=== PATIENT | female | born 1950 | race African-American/Black ===

== ENCOUNTER 2018-02-13 01:41 | Inpatient (IN) | payer MEDICARE, MEDICAID ==
[2018-02-13 02:59] LABS: Bilirubin Negative (Negative); Blood, Urine Negative (Negative); Clarity CLEAR (Clear); Glucose, Urine (Dipstick) >=1000 mg/dL (Negative); Leukocyte Negative (Negative); Nitrite Negative (Negative); Protein, Urine (Dipstick) Negative (Neg-Trace); Specific Gravity, Urine 1.025 (1.002-1.036); Urobilinogen 0.2 mg/dL (0.2-1.0); pH, Urine 6.5 (5.0-9.0)
[2018-02-13] MEDS ORDERED: Ondansetron ODT 4 MG TAB SL PRN (03:57)
[2018-02-13] MEDS ORDERED: Ondansetron HCl/PF 4 MG/2 ML Vial IVP PRN ×2 (03:57→06:58)
[2018-02-13] MEDS ORDERED: Acetaminophen 325 MG TAB PO PRN ×2 (03:57→06:58)
[2018-02-13] MEDS ORDERED: Sodium Chloride 0.9% 1,000 ML IV SCH (03:57)
[2018-02-13 04:09] VITALS: BMI 35.2
[2018-02-13] MEDS ORDERED: hydrALAZINE 20 MG/ML VIAL SLOW IVP PRN (05:16)
[2018-02-13] MEDS ORDERED: Dextrose 50% Abboject 50 ML SYRINGE SLOW IVP PRN (06:58)
[2018-02-13] MEDS ORDERED: Loratadine 10 MG TAB PO PRN (06:58)
[2018-02-13] MEDS ORDERED: Sodium Chloride 0.65% Nasal 44 ML BOT EA NARE PRN (06:58)
[2018-02-13] MEDS ORDERED: Chloraseptic Spray 180 ml Bottle PO PRN (06:58)
[2018-02-13] MEDS ORDERED: traMADol HCl 50 MG TAB PO PRN (06:58)
[2018-02-13] MEDS ORDERED: Ondansetron ODT 4 MG TAB PO PRN (06:58)
[2018-02-13] MEDS ORDERED: Milk Of Magnesia 30 ML UDCUP PO PRN (06:58)
[2018-02-13] MEDS ORDERED: Dextrose 5% in Water 1,000 ML IV PRN (06:58)
[2018-02-13] MEDS ORDERED: Labetalol HCl 100 MG/20 ML VIAL SLOW IVP PRN (06:58)
[2018-02-13] MEDS ORDERED: Artificial Tears 18 DROP/0.9 ML EA EYE PRN (06:58)
[2018-02-13] MEDS ORDERED: Senokot 8.6 MG TAB PO PRN (06:58)
[2018-02-13] MEDS ORDERED: HYDROcodone/Acetaminophen 5/325 mg Tablet PO PRN (06:58)
[2018-02-13] MEDS ORDERED: Diabetic Tussin 200 MG/10 ML UDCUP PO PRN (06:58)
[2018-02-13] MEDS ORDERED: Eucerin (Mineral Oil/Petrolatum,White) 30 gm Jar TOP PRN (06:58)
[2018-02-13] MEDS ORDERED: Mag-Al 1200 mg/1200 mg/30 ML UDCUP PO PRN (06:58)
[2018-02-13 07:40] LABS: ALT (SGPT) 24 U/L (8-55); AST (SGOT) 26 U/L (5-34); Albumin 3.8 g/dL (3.4-4.8); Alkaline Phosphatase 71 U/L (40-150); Anion Gap 13 mmol/L (10-20); BUN (Urea Nitrogen) 34 mg/dL (9.8-20.1); Bilirubin, Total 0.9 mg/dL (0.2-1.2); Calc. Creatinine Clearance 64 mL/min (70-130); Calcium 9.5 mg/dL (7.8-10.44); Carbon Dioxide 34 mmol/L (23-31); Chloride 98 mmol/L (98-107); Estimated GFR-MDRD 50; Globulin 3.5 g/dL (2.4-3.5); Glucose 367 mg/dL (80-115); Potassium 4.1 mmol/L (3.5-5.1); Protein, Total 7.3 g/dL (6.0-8.3); Sodium 141 mmol/L (136-145)
[2018-02-13] MEDS: metFORMIN 500 MG TAB PO SCH ×2 (08:05→18:43)
[2018-02-13 08:42] LABS: Band 5 % (5-11); Hemoglobin 13.4 g/dL (12.0-16.0); Lymphocytes 5 % (21-51); MDiff Complete? YES; Mean Corpuscular HGB CONC 30.8 g/dL (32.0-36.0); Mean Corpuscular Hemoglobin 25.7 pg (27.0-31.0); Mean Corpuscular Volume 83.5 fL (78.0-98.0); Mean Platelet Volume 9.6 fL (7.4-10.4); Monocytes 2 % (0-10); Neutrophil 88 % (42-75); Platelet Count 288 thou/uL (130-400); RBC Distribution Width 16.4 % (11.5-14.5); RBC Morphology Normal; Red Blood Cell (RBC) Count 5.21 mill/uL (4.20-5.40); White Blood Cell (WBC) Count 12.6 thou/uL (4.8-10.8)
--- NOTE | 2018-02-13 08:47 | RAD ---
AP VIEW CHEST: INDICATIONS: Wheezing. COMPARISON: None. FINDINGS: Low lung volumes accentuate the cardiac silhouette and pulmonary vasculature; however, the cardiac si lhouette is felt to be enlarged. There are areas of subsegmental volume loss involving the right mid lung. No pleural effusion or pneumothorax is evident. No acute osseous abnormality is evident. IMPRESSION: 1. Low lung volumes. 2. Cardiomegaly. 3. Subsegmental volume loss, right mid lung. POS: [facility]
[2018-02-13] MEDS ORDERED: Prevnar 13-Val Conj/PF 0.5 ML SYRINGE IM ONE (09:00)
[2018-02-13] MEDS ORDERED: cloNIDine 0.2mg/24 Hour PATCH TD SCH (09:45)
[2018-02-13] MEDS: Lisinopril 20 MG TAB PO SCH (10:47)
[2018-02-13] MEDS: Potassium Chloride 20 MEQ TAB PO SCH (10:48)
[2018-02-13] MEDS: Carvedilol 25 MG TAB PO SCH ×2 (10:48→20:08)
[2018-02-13] MEDS: Furosemide 80 MG TAB PO SCH (10:48)
[2018-02-13] MEDS: Atorvastatin Calcium 40 MG TAB PO SCH (11:01)
[2018-02-13] MEDS ORDERED: Insulin NPH/Reg Insulin Hm 300 UNITS/3 ML VIAL SC SCH ×2 (11:30→12:15)
--- NOTE | 2018-02-13 12:03 | HP ---
PRIMARY CARE PHYSICIAN: [facility] call admission. REASON FOR ADMISSION: Transfer from [facility] for cerebellar mass. HISTORY OF PRESENT ILLNESS: A 67-year-old female who has reported chronic respirato ry failure, on home oxygen therapy; coronary artery disease; COPD; diabetes type 2; chronic diastolic heart failure; hypertension. The patient went to [facility] for generalized weakn ess. This patient unfortunately completely encephalopathic and she is not able to provide any good h istory. Whenever I tried to talk to her, she was mumbling and she appeared confused, so history not able to be obtained from her so I reviewed [facility] record, which was sent with t he patient in our emergency room and based on that, patient had a summary sent to hospital stay and s ubsequently she was having generalized weakness. She was treated for COPD and pulmonary hypertension , and she was discharged with oxygen therapy. At home, the patient was getting more and more confuse d. She was not able to get around. She was having pain and that is why she was evaluated at [facility]. The patient had a CT brain which showed large hypodense mass within the regio n of left cerebellar hemisphere with some mass effect on the fourth ventricle. There was suspicious for metastatic disease versus primary brain neoplasm and the patient was requiring MRI and for higher level of care, this patient was sent to our emergency room for evaluation. Overnight, the patient w as admitted to medical floor. When I saw this patient this morning, the patient was confused, not ab le to provide any history. PAST MEDICAL HISTORY: As per report, the patient has chronic respiratory failure, on home oxygen the rapy for hypoxia; COPD; CAD; diabetes type 2; chronic congestive heart failure likely diastolic; hype rtension. PAST SURGICAL HISTORY: The patient is not able to provide any surgical history as per report. CURRENT HOME MEDICATIONS: We do not have any medication and no family member present at bedside to b ring any medication list. ALLERGIES: No known drug allergies. PSYCHIATRIC HISTORY: Unable to review at this point because patient is not able to provide any histo ry. SOCIAL HISTORY: As per report, the patient never smoked. No history of alcohol or other illicit tim g abuse. Detailed social history not able to obtain from patient. FAMILY HISTORY: As per report, we do not have any more information about family history and the amber ent cannot provide or add any more history regarding family history. REVIEW OF SYSTEMS: All review of systems tried to review with the patient, but unable to review at t his point because of altered mental status. EMERGENCY ROOM COURSE: The patient was given labetalol 10 units subcutaneous insulin, DuoNeb therapy , Decadron, 1 gram Rocephin at [facility]. PHYSICAL EXAMINATION: VITAL SIGNS: In our emergency room, blood pressure 167/83, pulse 85, respiratory rate 18, temperatur e 97.6, saturation 93% on room air, weight 99.7 kilograms. GENERAL: The patient is currently confused, arousable, unable to answer questions. No obvious acute distress. HEAD: Normocephalic, atraumatic. EYES: Pupils round, reactive to light. Extraocular muscle intact. ENT: Dry mucous membranes, no oral lesion, no pharyngeal erythema, no exudate. NECK: Supple, no JVD, no thyromegaly, no carotid bruit. LUNGS: Bilateral coarse breath sounds with a few bilateral end expiratory wheezing heard. CARDIAC: S1, S2 appears regular, tachycardia, no murmur, no gallop, no rub. ABDOMEN: Obesity present. Bowel sounds present. No discomfort noted. No suprapubic discomfort, no peritoneal sign, no guarding, no rigidity. GENITOURINARY: Unremarkable. MUSCULOSKELETAL: Passive movement of all joints are normal. SKIN: No skin rash. HEMATOLOGIC: No lymphadenopathy. EXTREMITIES: Upper extremity: Passive movement of all joints are normal. Lower extremity: No gay a, no calf tenderness. NEUROLOGIC: Unable to assess at this point. The patient is not cooperative, confused so detailed ne urological examination not possible. HEMATOLOGIC: No lymphadenopathy. SIGNIFICANT LABORATORY DATA: 1. EKG showing sinus arrhythmia, nonspecific ST-T changes in inferior leads, LVH, left atrial enlarg ement. CT brain done at [facility] which showed large hypodense mass within the re gion of left cerebellar hemisphere with some mass effect on the fourth ventricle may reflect metastat ic disease. Primary brain neoplasm or subacute infarct. 2. Blood test done at [facility]. CBC: WBC 11.2, hemoglobin 12.2, platelet 310. Sodium 137, potassium 3.6, chloride 95, carbon dioxide 35, anion gap 10, glucose 456, BUN 39, creati nine 1.30, calcium 8.9. 3. LFT: AST 30, ALT 25, alkaline phosphatase 54, albumin 3.6, protein 7.3, glucose 329. Urinalysis : Glucosuria. INR 1.1, myoglobin blood 304. ASSESSMENT AND PLAN: 1. Acute encephalopathy, most likely related with her left cerebellar mass with some mass effect on the fourth ventricle with developing hydrocephalus. 2. Large hypodense mass within the region of left cerebellar hemisphere with mass effect on the four th ventricle. Differential diagnosis is metastatic disease. Primary brain neoplasm versus subacute infarct. 3. Chronic respiratory failure with hypoxia, requiring home oxygen. 4. Chronic diastolic heart failure. 5. Dyslipidemia. 6. Hypertension with hypertensive urgency. 7. Gastroesophageal reflux disease, obesity with BMI 35. 8. Hyperglycemia associated with diabetes type 2. 9. Chronic kidney disease stage 3. PLAN: 1. Full admission to medical floor. Neurosurgery will be consulted. We will obtain MRI brain with contrast. The patient is not able to take any oral medication and that is why we will consult speech therapy for diet evaluation. Once patient is able to take orally, then we will continue her home me dication including Lipitor 80 mg p.o. daily, Coreg 25 mg p.o. b.i.d., Lasix 80 mg p.o. daily, lisinop ril 40 mg p.o. daily, metformin 500 mg p.o. b.i.d., Protonix 40 mg p.o. daily, potassium chloride 20 mEq p.o. daily. We will start some steroid for her vasogenic edema. With steroid, we are expecting that her blood sugar will get worse and in that case, the patient will need aggressive insulin covera ge. We will also start 70/30 insulin. The patient's blood pressure is also not well controlled and that is why we will start clonidine patch. We will resume the patient's selected home medication. W e will give her gentle IV fluid. Depending upon clinical course, we will decide next level of care. We will continue Protonix 40 mg IV daily. 2. Deep venous thrombosis prophylaxis, at this point because of large cerebellar mass. We will avoi d any heparin product to prevent any bleeding, only will provide SCD boots for now. 3. Gastrointestinal prophylaxis. The patient will be kept on Protonix 40 mg IV daily. 4. Code status. At this point, no family member present at bedside. The patient will be kept as a FULL CODE. Disposition plan based on clinical course. We are expecting patient's stay in hospital more than 2 m idnights. Plan of care discussed with the jail.
[2018-02-13] MEDS: Dexamethasone 4 mg/ml Vial SLOW IVP SCH ×2 (13:06→20:08)
[2018-02-13] MEDS: hydrALAZINE 20 MG/ML VIAL SLOW IVP PRN (13:08)
[2018-02-13] MEDS: HumaLOG 300 UNITS/3 ML VIAL SC PRN ×2 (13:09→21:24)
[2018-02-13] MEDS ORDERED: Dexamethasone 4 MG in Sodium Chloride 0.9% 50 ML IVPB SCH (14:00)
[2018-02-13] MEDS: Insulin NPH/Reg Insulin Hm 300 UNITS/3 ML VIAL SC SCH (18:22)
[2018-02-14] MEDS: hydrALAZINE 20 MG/ML VIAL SLOW IVP PRN (02:15)
[2018-02-14] MEDS: Dexamethasone 4 mg/ml Vial SLOW IVP SCH ×4 (02:16→19:56)
[2018-02-14] MEDS: HumaLOG 300 UNITS/3 ML VIAL SC PRN ×3 (05:20→17:24)
[2018-02-14 05:27] LABS: ALT (SGPT) 24 U/L (8-55); AST (SGOT) 23 U/L (5-34); Albumin 3.7 g/dL (3.4-4.8); Alkaline Phosphatase 67 U/L (40-150); Anion Gap 16 mmol/L (10-20); BUN (Urea Nitrogen) 31 mg/dL (9.8-20.1); Bilirubin, Total 0.8 mg/dL (0.2-1.2); Calc. Creatinine Clearance 83 mL/min (70-130); Calcium 9.9 mg/dL (7.8-10.44); Carbon Dioxide 30 mmol/L (23-31); Chloride 104 mmol/L (98-107); Estimated GFR-MDRD 67; Globulin 3.6 g/dL (2.4-3.5); Glucose 300 mg/dL (80-115); Potassium 3.8 mmol/L (3.5-5.1); Protein, Total 7.3 g/dL (6.0-8.3); Sodium 146 mmol/L (136-145)
[2018-02-14 05:52] LABS: Band 6 % (5-11); Lymphocytes 12 % (21-51); MDiff Complete? YES; Mean Corpuscular HGB CONC 29.9 g/dL (32.0-36.0); Mean Corpuscular Hemoglobin 25.2 pg (27.0-31.0); Mean Corpuscular Volume 84.5 fL (78.0-98.0); Mean Platelet Volume 10.3 fL (7.4-10.4); Metamyelocyte 1 % (0-0); Monocytes 10 % (0-10); Neutrophil 70 % (42-75); Nucleated RBC 1 % (0); PLT Morphology Comment Appears Adequate; Platelet Count 263 thou/uL (130-400); RBC Distribution Width 16.6 % (11.5-14.5); Reactive Lymphocytes 1 % (0-10); Red Blood Cell (RBC) Count 5.53 mill/uL (4.20-5.40); White Blood Cell (WBC) Count 10.7 thou/uL (4.8-10.8)
[2018-02-14] MEDS: Pantoprazole 40 MG VIAL IVP SCH (08:57)
[2018-02-14] MEDS: Insulin NPH/Reg Insulin Hm 300 UNITS/3 ML VIAL SC SCH ×3 (08:57→17:24)
[2018-02-14] MEDS: Furosemide 80 MG TAB PO SCH (08:58)
[2018-02-14] MEDS: Lisinopril 20 MG TAB PO SCH (08:58)
[2018-02-14] MEDS: Carvedilol 25 MG TAB PO SCH ×2 (08:58→19:57)
[2018-02-14] MEDS: Potassium Chloride 20 MEQ TAB PO SCH (08:58)
[2018-02-14] MEDS: Atorvastatin Calcium 40 MG TAB PO SCH (08:58)
[2018-02-14] MEDS: metFORMIN 500 MG TAB PO SCH ×2 (08:59→17:40)
--- NOTE | 2018-02-14 10:41 | PDOC.PN ---
- Subjective Encounter Start Date: 02/14/18 Encounter Start Time: 08:30 Patient seen and examined. pt is continue to be encephalopathic, unable to do MRI, no family bedside. No overnight events - Objective Resuscitation Status: Resuscitation Status FULL:Full Resuscitation MAR Reviewed: Yes Vital Signs & Weight: Vital Signs (12 hours) Temp Pulse Resp BP BP Pulse Ox 02/14/18 08:58 160/96 H 02/14/18 07:53 97.6 F 93 16 160/96 H 94 L 02/14/18 04:00 97.9 F 94 18 160/74 H 92 L 02/14/18 03:27 93 L 02/14/18 02:15 65 184/79 H 02/14/18 00:00 97.8 F 89 18 187/94 H 93 L Weight Weight 218 lb 2.711 oz I&O: 02/13/18 02/14/18 02/15/18 06:59 06:59 06:59 Intake Total 100 Balance 100 Result Diagrams: 02/14/18 04:18 02/14/18 04:18 Additional Labs: Accuchecks 02/14/18 02/13/18 02/13/18 05:16 19:31 16:41 POC Glucose 298 H 315 H 264 H 02/13/18 11:14 POC Glucose 351 H Phys Exam - Physical Examination Constitutional: NAD HEENT: PERRLA, sclera anicteric Neck: no JVD, supple Respiratory: no wheezing, no rales, no rhonchi Cardiovascular: RRR, no significant murmur, no rub Gastrointestinal: soft, no distention, positive bowel sounds Musculoskeletal: no edema, pulses present Neurological: moves all 4 limbs Lymphatic: no nodes Deviation from normal: confused, restless Skin: no rash, normal turgor Dx/Plan (1) Encephalopathy acute Code(s): G93.40 - ENCEPHALOPATHY, UNSPECIFIED Status: Acute (2) Hypertensive urgency Code(s): I16.0 - HYPERTENSIVE URGENCY Status: Acute (3) Mass of cerebellum Code(s): G93.89 - OTHER SPECIFIED DISORDERS OF BRAIN Status: Acute (4) Chronic respiratory failure with hypoxia, on home oxygen therapy Code(s): J96.11 - CHRONIC RESPIRATORY FAILURE WITH HYPOXIA; Z99.81 - DEPENDENCE ON SUPPLEMENTAL OXYGEN Status: Chronic (5) COPD (chronic obstructive pulmonary disease) Status: Chronic (6) CHF (NYHA class III, ACC/AHA stage C) Code(s): I50.9 - HEART FAILURE, UNSPECIFIED Status: Chronic (7) Diabetes type 2, controlled Code(s): E11.9 - TYPE 2 DIABETES MELLITUS WITHOUT COMPLICATIONS Status: Chronic (8) Obesity (BMI 30-39.9) Code(s): E66.9 - OBESITY, UNSPECIFIED Status: Chronic - Plan cont current plan of care * will try to to MRI when possible * neurosurgery consulted * I tried to reach family on listed phone number and left voice mail * medication reviewed as below * symptomatic treatment * supportive care. * increase insulin 15 unit ac Review of Systems - Review of Systems Other: unable to review due to encephalopathy - Medications/Allergies Allergies/Adverse Reactions: Allergies Allergy/AdvReac Type Severity Reaction Status Date / Time No Known Drug Allergies Allergy Verified 02/13/18 04:41 Medications: Current Medications Acetaminophen (Tylenol) 650 mg PO Q4H PRN PRN Reason: Headache/Fever or Pain Hydrocodone Bitart/Acetaminophen ([place] 5/325) 1 tab PO Q4H PRN PRN Reason: Moderate Pain (4-6) Al Hydroxide/Mg Hydroxide (Maalox) 30 ml PO Q6H PRN PRN Reason: Heartburn or Indigestion Artificial Tears (Tears Naturale) 0 drop EA EYE PRN PRN PRN Reason: Dry Eyes Atorvastatin Calcium (Lipitor) 80 mg PO DAILY [facility] Last Admin: 02/14/18 08:58 Dose: Not Given Carvedilol (Coreg) 25 mg PO BID [facility] Last Admin: 02/14/18 08:58 Dose: Not Given Clonidine (Eydbqhih-Ilb-6) 0.2 mg TD Q7DAYS [facility] Dexamethasone (Decadron) 4 mg SLOW IVP 0200,0800,1400,2000 [facility] Last Admin: 02/14/18 08:57 Dose: 4 mg Dextrose/Water (Dextrose 50%) 25 gm SLOW IVP PRN PRN PRN Reason: Hypoglycemia Furosemide (Lasix) 80 mg PO DAILY [facility] Last Admin: 02/14/18 08:58 Dose: Not Given Glucagon (Glucagon) 1 mg IM PRN PRN PRN Reason: Hypoglycemia Guaifenesin (Robitussin Sf) 200 mg PO Q4H PRN PRN Reason: Cough Hydralazine HCl (Apresoline) 10 mg SLOW IVP Q4H PRN PRN Reason: Systolic BP > 180 Last Admin: 02/14/18 02:15 Dose: 10 mg Dextrose/Water (D5w) 1,000 mls @ 0 mls/hr IV .Q0M PRN; As Directed PRN Reason: Hypoglycemia Insulin Human Isoph/Insulin Regular (Humulin 70/30) 10 units SC [facility] Last Admin: 02/14/18 08:57 Dose: 10 unit Insulin Human Lispro (Humalog) 0 units SC .MODERATE SLIDING SC PRN PRN Reason: Moderate Correctional Scale Last Admin: 02/14/18 05:20 Dose: 6 unit Insulin Human Lispro (Humalog) 0 units SC .BEDTIME SLIDING SC PRN PRN Reason: Bedtime Correctional Scale Last Admin: 02/13/18 21:24 Dose: 5 unit Labetalol HCl (Normodyne) 20 mg SLOW IVP Q4H PRN PRN Reason: Systolic BP > 180 Last Admin: 02/13/18 08:43 Dose: 20 mg Lisinopril (Zestril) 40 mg PO DAILY [facility] Last Admin: 02/14/18 08:58 Dose: Not Given Loperamide HCl (Imodium) 2 mg PO PRN PRN PRN Reason: Diarrhea/Loose Stools Loratadine (Claritin) 10 mg PO DAILYPRN PRN PRN Reason: Sinus Symptoms Magnesium Hydroxide (Milk Of Magnesium) 30 ml PO DAILYPRN PRN PRN Reason: Constipation Metformin HCl (Glucophage) 500 mg PO BID-[facility] Last Admin: 02/14/18 08:59 Dose: Not Given Mineral Oil/White Petrolatum (Eucerin Cream) 0 gm TOP BIDPRN PRN PRN Reason: Dry Skin Ondansetron HCl (Zofran Odt) 4 mg PO Q6H PRN PRN Reason: Nausea/Vomiting Ondansetron HCl (Zofran) 4 mg IVP Q6H PRN PRN Reason: Nausea/Vomiting Pantoprazole Sodium (Protonix) 40 mg PO DAILY [facility] Last Admin: 02/14/18 08:58 Dose: Not Given Pantoprazole Sodium (Protonix) 40 mg IVP DAILY [facility] Last Admin: 02/14/18 08:57 Dose: 40 mg Phenol (Chloraseptic [place] 180 Ml Bot) 0 ml PO PRN PRN PRN Reason: Sore Throat Potassium Chloride (K-Dur) 20 meq PO DAILY [facility] Last Admin: 02/14/18 08:58 Dose: Not Given Senna (Senokot) 2 tab PO HSPRN PRN PRN Reason: Constipation Sodium Chloride ([place] Nasal [place] 0.65%) 0 ml EA NARE QIDPRN PRN PRN Reason: Nasal Congestion Sodium Chloride (Flush - Normal Saline) 10 ml IVF Q12HR [facility] Last Admin: 02/14/18 08:57 Dose: 10 ml Sodium Chloride (Flush - Normal Saline) 10 ml IVF PRN PRN PRN Reason: Saline Flush Tramadol HCl (Ultram) 50 mg PO TID PRN PRN Reason: Pain Last Admin: 02/13/18 20:23 Dose: 50 mg
[2018-02-15] MEDS: Dexamethasone 4 mg/ml Vial SLOW IVP SCH ×4 (01:28→20:25)
[2018-02-15] MEDS: Pantoprazole 40 MG VIAL IVP SCH (07:51)
[2018-02-15] MEDS: Potassium Chloride 20 MEQ TAB PO SCH (07:54)
[2018-02-15] MEDS: Lisinopril 20 MG TAB PO SCH (07:55)
[2018-02-15] MEDS: Atorvastatin Calcium 40 MG TAB PO SCH (07:55)
[2018-02-15] MEDS: Furosemide 80 MG TAB PO SCH (07:55)
[2018-02-15] MEDS: Carvedilol 25 MG TAB PO SCH ×2 (07:55→20:25)
[2018-02-15] MEDS: metFORMIN 500 MG TAB PO SCH ×2 (07:56→17:27)
[2018-02-15] MEDS: Insulin NPH/Reg Insulin Hm 300 UNITS/3 ML VIAL SC SCH (07:56)
[2018-02-15] MEDS ORDERED: Dextrose 5 % And 0.9 % NaCl 1,000 ML IV SCH (09:45)
[2018-02-15] MEDS ORDERED: cefTRIAXone\\ROCEPHIN 1 GM in Sodium Chloride 0.9% 100 ML SLOW IVP SCH (10:00)
--- NOTE | 2018-02-15 10:35 | PRG ---
DATE OF SERVICE: 02/15/2018 ADVANCE CARE PLANNING NOTE CLINICAL SUMMARY: This is a 67-year-old female, who has COPD, chronic respiratory failure with home oxygen therapy. She is admitted for acute encephalopathy and left cerebellar mass. While in hospital, the patient continued to be encephalopathic. She has failed swallow evaluation. She is still confused. We have not been able to do MRI, because of her continuous restlessness. Today, I had a discussion with the patient's daughter about her goal of care, prognosis, and investig ation results. We are suspecting that this patient has underlying brain tumor in left cerebellar mas s, and we are suspecting primary versus secondary. I discussed with her about code status and I spent enough time to explain her what DO NOT RESUSCITATE means and she understood after my explanation and she expressed and she made decision that her mothe r should be DNR. Patient does not have and she does not have any other kids. Her daughter, Ann, is the medical power of insurance defense attorney. She wants her mother to be comfortable without any CPR to be done or intubation to be done in case of cardiopulmonary arrest. She has not decided yet that in case if she has a brain tumor and if she needs any surgical intervent ion, then she has not decided yet about whether she needs to go for surgery or not, but she will list en from Neurosurgery and then finalize her decision. I also spoke with her about hospice. She understood what hospice means and what is the hospice role. She says that in case if this patient does not have any curable options then she is open to discuss hospice options with her. Patient's daughter also expressed that she wanted to do investigation if possible, and that is why ba sed on her request, we are trying to do MRI that will be done tomorrow, but before that we are also t rying to do CT chest, abdomen, and pelvis and CT brain for further evaluation in our hospital. After that, I discussed with about tube feeding and she does not want her mother to starve and that i s why we are waiting for Speech therapy evaluation today. If she continues unsafe for any kind of or al intake, then we will try to put a Dobhoff tube and see how she does in the next day or two, and ev entually, we will consider doing a PEG tube option if needed. Total time spent providing advanced care planning is 16-20 minutes in addition to my regular round fo r this particular patient for medical care.
--- NOTE | 2018-02-15 10:59 | PDOC.PN ---
- Subjective Encounter Start Date: 02/15/18 Encounter Start Time: 08:30 Patient seen and examined. pt is still encephalopathic, unable to take orally, No overnight events - Objective Resuscitation Status: Resuscitation Status DNR:Do Not Resuscitate MAR Reviewed: Yes Vital Signs & Weight: Vital Signs (12 hours) Temp Pulse Resp BP BP Pulse Ox 02/15/18 07:55 158/93 H 02/15/18 07:28 97.7 F 85 16 158/93 H 93 L 02/15/18 03:39 97.6 F 91 20 156/85 H 99 02/15/18 00:36 98 F 59 L 18 167/84 H 94 L 02/15/18 00:14 94 L Weight Weight 218 lb 2.711 oz I&O: 02/14/18 02/15/18 02/16/18 06:59 06:59 06:59 Intake Total 100 42 Balance 100 42 Result Diagrams: 02/14/18 04:18 02/14/18 04:18 Additional Labs: Accuchecks 02/15/18 02/14/18 02/14/18 05:05 19:58 16:37 POC Glucose 93 131 H 241 H 02/14/18 02/14/18 14:07 11:16 POC Glucose 244 H 270 H Phys Exam - Physical Examination Constitutional: NAD HEENT: PERRLA, sclera anicteric dry MM Neck: no JVD, supple Respiratory: no wheezing, no rales, no rhonchi Cardiovascular: RRR, no significant murmur, no rub Gastrointestinal: soft, non-tender, no distention, positive bowel sounds Musculoskeletal: no edema, pulses present Neurological: moves all 4 limbs Lymphatic: no nodes Psychiatric: normal affect Skin: no rash, normal turgor Dx/Plan (1) Encephalopathy acute Code(s): G93.40 - ENCEPHALOPATHY, UNSPECIFIED Status: Acute (2) Mass of cerebellum Code(s): G93.89 - OTHER SPECIFIED DISORDERS OF BRAIN Status: Acute (3) Chronic respiratory failure with hypoxia, on home oxygen therapy Code(s): J96.11 - CHRONIC RESPIRATORY FAILURE WITH HYPOXIA; Z99.81 - DEPENDENCE ON SUPPLEMENTAL OXYGEN Status: Chronic (4) COPD (chronic obstructive pulmonary disease) Status: Chronic (5) CHF (NYHA class III, ACC/AHA stage C) Code(s): I50.9 - HEART FAILURE, UNSPECIFIED Status: Chronic (6) Diabetes type 2, controlled Code(s): E11.9 - TYPE 2 DIABETES MELLITUS WITHOUT COMPLICATIONS Status: Chronic (7) Obesity (BMI 30-39.9) Code(s): E66.9 - OBESITY, UNSPECIFIED Status: Chronic (8) Hypertensive urgency Code(s): I16.0 - HYPERTENSIVE URGENCY Status: Acute (9) UTI (urinary tract infection) Status: Suspected - Plan cont current plan of care, plan discussed w/ family, continue antibiotics * code status changed to dnr * discussed with daughter in detail * start empiric rocephin * medication reviewed as below * symptomatic treatment * change ivf dex with ns at 75 ml per hour * continue insulin as per sliding scale only * today will get CT brain/mri brain, chest, abdomen and pelvis * neurosurgery consulted. Review of Systems - Review of Systems Other: unable to review due to encephalopathy - Medications/Allergies Allergies/Adverse Reactions: Allergies Allergy/AdvReac Type Severity Reaction Status Date / Time No Known Drug Allergies Allergy Verified 02/13/18 04:41 Medications: Current Medications Acetaminophen (Tylenol) 650 mg PO Q4H PRN PRN Reason: Headache/Fever or Pain Hydrocodone Bitart/Acetaminophen ([place] 5/325) 1 tab PO Q4H PRN PRN Reason: Moderate Pain (4-6) Al Hydroxide/Mg Hydroxide (Maalox) 30 ml PO Q6H PRN PRN Reason: Heartburn or Indigestion Artificial Tears (Tears Naturale) 0 drop EA EYE PRN PRN PRN Reason: Dry Eyes Atorvastatin Calcium (Lipitor) 80 mg PO DAILY [facility] Last Admin: 02/15/18 07:55 Dose: Not Given Carvedilol (Coreg) 25 mg PO BID [facility] Last Admin: 02/15/18 07:55 Dose: Not Given Clonidine (Wwjwsbib-Qhy-2) 0.2 mg TD Q7DAYS [facility] Dexamethasone (Decadron) 4 mg SLOW IVP 0200,0800,1400,2000 [facility] Last Admin: 02/15/18 07:54 Dose: 4 mg Dextrose/Water (Dextrose 50%) 25 gm SLOW IVP PRN PRN PRN Reason: Hypoglycemia Furosemide (Lasix) 80 mg PO DAILY [facility] Last Admin: 02/15/18 07:55 Dose: Not Given Glucagon (Glucagon) 1 mg IM PRN PRN PRN Reason: Hypoglycemia Guaifenesin (Robitussin Sf) 200 mg PO Q4H PRN PRN Reason: Cough Hydralazine HCl (Apresoline) 10 mg SLOW IVP Q4H PRN PRN Reason: Systolic BP > 180 Last Admin: 02/14/18 02:15 Dose: 10 mg Dextrose/Water (D5w) 1,000 mls @ 0 mls/hr IV .Q0M PRN; As Directed PRN Reason: Hypoglycemia Dextrose/Sodium Chloride (D5 0.9% Ns) 1,000 mls @ 75 mls/hr IV .[id number] [facility] Last Admin: 02/15/18 10:22 Dose: 1,000 mls Ceftriaxone Sodium 1 gm/ (Sodium Chloride) 100 mls @ 200 mls/hr SLOW IVP Q24HR [facility] Last Admin: 02/15/18 10:21 Dose: 100 mls Insulin Human Lispro (Humalog) 0 units SC .MODERATE SLIDING SC PRN PRN Reason: Moderate Correctional Scale Last Admin: 02/14/18 17:24 Dose: 4 unit Insulin Human Lispro (Humalog) 0 units SC .BEDTIME SLIDING SC PRN PRN Reason: Bedtime Correctional Scale Last Admin: 02/13/18 21:24 Dose: 5 unit Labetalol HCl (Normodyne) 20 mg SLOW IVP Q4H PRN PRN Reason: Systolic BP > 180 Last Admin: 02/13/18 08:43 Dose: 20 mg Lisinopril (Zestril) 40 mg PO DAILY [facility] Last Admin: 02/15/18 07:55 Dose: Not Given Loperamide HCl (Imodium) 2 mg PO PRN PRN PRN Reason: Diarrhea/Loose Stools Loratadine (Claritin) 10 mg PO DAILYPRN PRN PRN Reason: Sinus Symptoms Magnesium Hydroxide (Milk Of Magnesium) 30 ml PO DAILYPRN PRN PRN Reason: Constipation Metformin HCl (Glucophage) 500 mg PO BID-[facility] Last Admin: 02/15/18 07:56 Dose: Not Given Mineral Oil/White Petrolatum (Eucerin Cream) 0 gm TOP BIDPRN PRN PRN Reason: Dry Skin Ondansetron HCl (Zofran Odt) 4 mg PO Q6H PRN PRN Reason: Nausea/Vomiting Ondansetron HCl (Zofran) 4 mg IVP Q6H PRN PRN Reason: Nausea/Vomiting Pantoprazole Sodium (Protonix) 40 mg PO DAILY [facility] Last Admin: 02/15/18 07:54 Dose: Not Given Pantoprazole Sodium (Protonix) 40 mg IVP DAILY [facility] Last Admin: 02/15/18 07:51 Dose: 40 mg Phenol (Chloraseptic [place] 180 Ml Bot) 0 ml PO PRN PRN PRN Reason: Sore Throat Potassium Chloride (K-Dur) 20 meq PO DAILY [facility] Last Admin: 02/15/18 07:54 Dose: Not Given Senna (Senokot) 2 tab PO HSPRN PRN PRN Reason: Constipation Sodium Chloride ([place] Nasal [place] 0.65%) 0 ml EA NARE QIDPRN PRN PRN Reason: Nasal Congestion Sodium Chloride (Flush - Normal Saline) 10 ml IVF Q12HR [facility] Last Admin: 02/15/18 07:54 Dose: 10 ml Sodium Chloride (Flush - Normal Saline) 10 ml IVF PRN PRN PRN Reason: Saline Flush Tramadol HCl (Ultram) 50 mg PO TID PRN PRN Reason: Pain Last Admin: 02/13/18 20:23 Dose: 50 mg
--- NOTE | 2018-02-15 12:38 | CT ---
CHEST AND ABDOMEN AND PELVIS CT SCAN WITH IV CONTRAST: Date: 02/15/18 HISTORY: 67-year-old female with history of brain mass. COMPARISON: Prior chest CT scan dated 02/10/18 and abdomen and pelvic CT scan dated 02/08/18 from [facility]. FINDINGS: There is essentially complete atelectasis and / or pneumonia of the right lower lobe with some fluid within the right lower lobe bronchi, which is a new finding when compared to previous exam. The previ ous noted partial right upper lobe atelectasis has resolved. Minimal parenchymal changes in the left base, stable. Three vessel coronary artery calcific disease. No pericardial or pleural effusion. Stable left lobe of liver cyst and postop cholecystectomy. Stable 2.0 cm diameter left adrenal nodule . No renal calculus or acute obstruction. Stable umbilical fat-containing hernia. Normal appearing appendix. Borderline distended urinary bladder. Stable thoracic and lumbar spondylosis. IMPRESSION: Interval development of essentially total right lower lobe atelectasis with some fluid within the rig ht lower lobe bronchi, possible aspiration. Minimal subsegmental atelectatic changes in the left base . Resolution of the previously noted right upper lobe atelectasis. Follow up chest xrays suggested. Stable liver cyst, left adrenal small mass, and fat-containing umbilical hernia. No evidence for oth er significant process in the chest, abdomen, or pelvis. POS: [facility]
[2018-02-15] MEDS ORDERED: ISOVUE-370 76%-LOCM 1 ML ONE (12:42)
--- NOTE | 2018-02-15 13:21 | CT ---
CT BRAIN: Date: 02/15/18 PROVIDED CLINICAL HISTORY: Cerebellar CVA. FINDINGS: Comparison made with the CT examination from [facility] dated 02/12/18. Correlation also mad e with the MR examination performed earlier same date. The area of hypodensity involving the left cerebral hemisphere described on prior CT examination is a gain demonstrated. Foci of increased attenuation are now seen within this area, probably reflecting s ome degree of hemorrhagic transformation, although the fact that the IV contrast was administered for CT of the chest/abdomen/pelvis performed prior to this examination somewhat limits ability to discri minate enhancement from blood products. The gradient blooming on MRI suggests blood products. There is mass effect upon the fourth ventricle. The temporal horns and third ventricle appear larger than on the comparison CT and there is more prominent hypodensity around the temporal and occipital h orns of the ventricular system suggesting obstructive hydrocephalus and transependymal flow of CSF. T he basilar cisterns appear patent. No shift of the midline structures. The extracranial soft tissues and osseous structures appear unremarkable. IMPRESSION: Findings most compatible with infarction involving the cerebellum with component of hemorrhage. This results in mass effect upon the fourth ventricle and probably hydrocephalus with transependymal flow of CSF. Neurosurgical consultation is recommended. Findings and recommendations discussed with Dr. Oneal at 1303 hours on 02/15/18. CODE CR. POS: [facility]
[2018-02-15] MEDS: Sodium Chloride 0.9% 1,000 ML IV SCH (14:42)
[2018-02-15] MEDS: Piperacillin/Tazobactam 3.375 GM in Sodium Chloride 0.9% 100 ML IVPB SCH ×2 (15:27→20:25)
--- NOTE | 2018-02-15 16:01 | MRI ---
PRE AND POST CONTRAST ENHANCED MRI BRAIN: 02/15/2018 COMPARISON: CT brain from 02/15/2018. FINDINGS: Pre and post contrast enhanced MR images demonstrate an area of diffusion restriction seen on the dif fusion weighted sequences, involving much of the inferomedial aspect of the left cerebellum. there i s signal abnormality extending along the cerebellum, extending into the right medial cerebellum. The fourth ventricle is anteriorly displaced. There is mass effect involving the medial aspect of the c erebellum, including the cerebellar vermis. There is definite signal abnormality on the diffusion we ighted sequences, to suggest an area of diffusion restriction and possible stroke; however, some of t he left posterior brachium pontis and vermian area of signal abnormality demonstrates T2 signal abnor mality but no evidence of diffusion restriction. This is concerning for a possible mass in this karl on. Contrast enhanced images demonstrate some subtle areas of medial cerebellar hameed matter enhancem ent, compatible with stroke, but no definite evidence of areas of enhancement seen within the white m atter. When compared to the previous comparison CAT scan from 02/12/2018, there is interval increasing hydro cephalus. There is also transependymal flow of CSF and enlargement of the ventricles, including the temporal ho rns. IMPRESSION: Left cerebellar area of signal abnormality with diffusion restriction. This is compatible with an ar ea of infarction; however, I am concerned about an additional area of neoplastic involvement, includi ng possible metastases in a patient of this age. There is also interval development of hydrocephalus . Further neurosurgical workup is recommended, including follow-up MRI images to evaluate for resolv ing stroke; however, a neoplastic process is also of significant concern, superimposed with an area o f cerebellar infarction. POS: [facility]
[2018-02-15] MEDS: HumaLOG 300 UNITS/3 ML VIAL SC PRN ×2 (16:53→20:36)
[2018-02-15] MEDS: hydrALAZINE 20 MG/ML VIAL SLOW IVP PRN (16:54)
[2018-02-16] MEDS: Dexamethasone 4 mg/ml Vial SLOW IVP SCH ×2 (02:12→08:40)
[2018-02-16] MEDS: Piperacillin/Tazobactam 3.375 GM in Sodium Chloride 0.9% 100 ML IVPB SCH ×4 (02:12→21:12)
[2018-02-16] MEDS: HumaLOG 300 UNITS/3 ML VIAL SC PRN ×3 (06:15→17:00)
[2018-02-16 06:32] LABS: Cardiac Risk 2.6 (Less than 4.5)
[2018-02-16] MEDS: Atorvastatin Calcium 40 MG TAB PO SCH (08:46)
[2018-02-16] MEDS: metFORMIN 500 MG TAB PO SCH ×2 (08:47→17:05)
[2018-02-16] MEDS: Lisinopril 20 MG TAB PO SCH (08:47)
[2018-02-16] MEDS: Carvedilol 25 MG TAB PO SCH ×2 (08:47→21:12)
[2018-02-16] MEDS: Furosemide 80 MG TAB PO SCH (08:47)
[2018-02-16] MEDS: Potassium Chloride 20 MEQ TAB PO SCH (08:47)
[2018-02-16] MEDS: Pantoprazole 40 MG VIAL IVP SCH (08:48)
--- NOTE | 2018-02-16 11:09 | PDOC.PN ---
- Subjective Encounter Start Date: 02/16/18 Encounter Start Time: 09:00 pt is today more alert, she was able to make few steps with PT, she is able to eat some, family bedside - Objective Resuscitation Status: Resuscitation Status DNR:Do Not Resuscitate MAR Reviewed: Yes Vital Signs & Weight: Vital Signs (12 hours) Temp Pulse Resp BP BP Pulse Ox 02/16/18 08:47 141/63 H 02/16/18 08:40 98.1 F 84 20 95 02/16/18 07:45 98.1 F 84 20 141/63 H 95 02/16/18 04:00 96.8 F L 80 20 120/58 L 94 L 02/16/18 00:00 98.0 F 60 16 106/51 L 93 L Weight Weight 218 lb 2.711 oz I&O: 02/15/18 02/16/18 02/17/18 06:59 06:59 06:59 Intake Total 42 1756 Balance 42 1756 Result Diagrams: 02/14/18 04:18 02/14/18 04:18 Additional Labs: Accuchecks 02/16/18 02/16/18 02/15/18 10:48 05:54 20:36 POC Glucose 267 H 279 H 297 H 02/15/18 02/15/18 16:41 12:25 POC Glucose 236 H 154 H Radiology Reviewed by me: Yes (CT, MRI) EKG Reviewed by me: Yes (nsr) Phys Exam - Physical Examination Constitutional: NAD HEENT: PERRLA, moist MMs, sclera anicteric Neck: no JVD, supple Respiratory: no wheezing, no rales, no rhonchi Cardiovascular: RRR, no significant murmur, no rub Gastrointestinal: soft, non-tender, no distention, positive bowel sounds Musculoskeletal: no edema, pulses present Neurological: moves all 4 limbs left side dysmetria, nystegmus Lymphatic: no nodes Psychiatric: normal affect Skin: no rash, normal turgor Dx/Plan (1) Cerebellar infarction Code(s): I63.9 - CEREBRAL INFARCTION, UNSPECIFIED Status: Acute (2) Encephalopathy acute Code(s): G93.40 - ENCEPHALOPATHY, UNSPECIFIED Status: Acute (3) Aspiration pneumonia Code(s): J69.0 - PNEUMONITIS DUE TO INHALATION OF FOOD AND VOMIT Status: Acute (4) Chronic respiratory failure with hypoxia, on home oxygen therapy Code(s): J96.11 - CHRONIC RESPIRATORY FAILURE WITH HYPOXIA; Z99.81 - DEPENDENCE ON SUPPLEMENTAL OXYGEN Status: Chronic (5) COPD (chronic obstructive pulmonary disease) Status: Chronic (6) CHF (NYHA class III, ACC/AHA stage C) Code(s): I50.9 - HEART FAILURE, UNSPECIFIED Status: Chronic (7) Diabetes type 2, controlled Code(s): E11.9 - TYPE 2 DIABETES MELLITUS WITHOUT COMPLICATIONS Status: Chronic (8) Obesity (BMI 30-39.9) Code(s): E66.9 - OBESITY, UNSPECIFIED Status: Chronic (9) Hypertensive urgency Code(s): I16.0 - HYPERTENSIVE URGENCY Status: Acute (10) UTI (urinary tract infection) Status: Suspected - Plan cont current plan of care, plan discussed w/ family, continue antibiotics, PT/OT , forensic social worker, DVT proph w/SCDs * pt is not on aspirin or other anticoagulants/antiplatelets due to her current cerebellar infarction and haemorragic conversion * consult neurology and stroke team * she will need rehab on discharge, family prefers in [place] * medication reviewed as below * symptomatic treatment * discussed with family * stroke team. * DC decadron * neurosurgery also consulted, * continue zosyn Review of Systems - Review of Systems Constitutional: negative: fever, chills, sweats, weakness, malaise, other ENT: negative: Ear Pain, Ear Discharge, Nose Pain, Nose Discharge, Nose Congestion, Mouth Pain, Mouth Swelling, Throat Pain, Throat Swelling, Other Respiratory: negative: Cough, Dry, Shortness of Breath, Hemoptysis, SOB with Excertion, Pleuritic Pain, Sputum, Wheezing Cardiovascular: negative: chest pain, palpitations, orthopnea, paroxysmal nocturnal dyspnea, edema, light headedness, other Gastrointestinal: negative: Nausea, Vomiting, Abdominal Pain, Diarrhea, Constipation, Melena, Hematochezia, Other Genitourinary: negative: Dysuria, Frequency, Incontinence, Hematuria, Retention , Other Musculoskeletal: negative: Neck Pain, Shoulder Pain, Arm Pain, Back Pain, Hand Pain, Leg Pain, Foot Pain, Other Skin: negative: Rash, Lesions, Watson, Bruising, Other Neurological: Incoordination. negative: Weakness, Numbness, Change in Speech, Confusion, Seizures, Other - Medications/Allergies Allergies/Adverse Reactions: Allergies Allergy/AdvReac Type Severity Reaction Status Date / Time No Known Drug Allergies Allergy Verified 02/13/18 04:41 Medications: Current Medications Acetaminophen (Tylenol) 650 mg PO Q4H PRN PRN Reason: Headache/Fever or Pain Hydrocodone Bitart/Acetaminophen (Varney 5/325) 1 tab PO Q4H PRN PRN Reason: Moderate Pain (4-6) Al Hydroxide/Mg Hydroxide (Maalox) 30 ml PO Q6H PRN PRN Reason: Heartburn or Indigestion Artificial Tears (Tears Naturale) 0 drop EA EYE PRN PRN PRN Reason: Dry Eyes Atorvastatin Calcium (Lipitor) 80 mg PO DAILY [facility] Last Admin: 02/16/18 08:46 Dose: 80 mg Carvedilol (Coreg) 25 mg PO BID [facility] Last Admin: 02/16/18 08:47 Dose: 25 mg Clonidine (Dtzyyncr-Bhc-9) 0.2 mg TD Q7DAYS [facility] Dextrose/Water (Dextrose 50%) 25 gm SLOW IVP PRN PRN PRN Reason: Hypoglycemia Furosemide (Lasix) 80 mg PO DAILY [facility] Last Admin: 02/16/18 08:47 Dose: 80 mg Glucagon (Glucagon) 1 mg IM PRN PRN PRN Reason: Hypoglycemia Guaifenesin (Robitussin Sf) 200 mg PO Q4H PRN PRN Reason: Cough Hydralazine HCl (Apresoline) 10 mg SLOW IVP Q4H PRN PRN Reason: Systolic BP > 180 Last Admin: 02/15/18 16:54 Dose: 10 mg Dextrose/Water (D5w) 1,000 mls @ 0 mls/hr IV .Q0M PRN; As Directed PRN Reason: Hypoglycemia Piperacillin Sod/Tazobactam (Sod 3.375 gm/ Sodium Chloride) 100 mls @ 200 mls/ hr IVPB 0200,0800,1400,2000 [facility] Last Admin: 02/16/18 08:39 Dose: 100 mls Sodium Chloride (Normal Saline 0.9%) 1,000 mls @ 50 mls/hr IV .Q20H [facility] Last Admin: 02/15/18 14:42 Dose: 1,000 mls Insulin Human Lispro (Humalog) 0 units SC .MODERATE SLIDING SC PRN PRN Reason: Moderate Correctional Scale Last Admin: 02/16/18 06:15 Dose: 6 unit Insulin Human Lispro (Humalog) 0 units SC .BEDTIME SLIDING SC PRN PRN Reason: Bedtime Correctional Scale Last Admin: 02/15/18 20:36 Dose: 3 unit Labetalol HCl (Normodyne) 20 mg SLOW IVP Q4H PRN PRN Reason: Systolic BP > 180 Last Admin: 02/13/18 08:43 Dose: 20 mg Lisinopril (Zestril) 40 mg PO DAILY [facility] Last Admin: 02/16/18 08:47 Dose: 40 mg Loperamide HCl (Imodium) 2 mg PO PRN PRN PRN Reason: Diarrhea/Loose Stools Loratadine (Claritin) 10 mg PO DAILYPRN PRN PRN Reason: Sinus Symptoms Magnesium Hydroxide (Milk Of Magnesium) 30 ml PO DAILYPRN PRN PRN Reason: Constipation Metformin HCl (Glucophage) 500 mg PO BID[facility] Last Admin: 02/16/18 08:47 Dose: 500 mg Mineral Oil/White Petrolatum (Eucerin Cream) 0 gm TOP BIDPRN PRN PRN Reason: Dry Skin Ondansetron HCl (Zofran Odt) 4 mg PO Q6H PRN PRN Reason: Nausea/Vomiting Ondansetron HCl (Zofran) 4 mg IVP Q6H PRN PRN Reason: Nausea/Vomiting Pantoprazole Sodium (Protonix) 40 mg PO DAILY [facility] Last Admin: 02/16/18 08:47 Dose: Not Given Pantoprazole Sodium (Protonix) 40 mg IVP DAILY [facility] Last Admin: 02/16/18 08:48 Dose: 40 mg Phenol (Chloraseptic Edelstein 180 Ml Bot) 0 ml PO PRN PRN PRN Reason: Sore Throat Potassium Chloride (K-Dur) 20 meq PO DAILY [facility] Last Admin: 02/16/18 08:47 Dose: 20 meq Senna (Senokot) 2 tab PO HSPRN PRN PRN Reason: Constipation Sodium Chloride ([place] Nasal Edelstein 0.65%) 0 ml EA NARE QIDPRN PRN PRN Reason: Nasal Congestion Sodium Chloride (Flush - Normal Saline) 10 ml IVF Q12HR [facility] Last Admin: 02/16/18 08:49 Dose: Not Given Sodium Chloride (Flush - Normal Saline) 10 ml IVF PRN PRN PRN Reason: Saline Flush Tramadol HCl (Ultram) 50 mg PO TID PRN PRN Reason: Pain Last Admin: 02/13/18 20:23 Dose: 50 mg
[2018-02-16] MEDS: Sodium Chloride 0.9% 1,000 ML IV SCH (11:42)
--- NOTE | 2018-02-16 19:04 | PRG ---
DATE OF SERVICE: 02/15/2018. Ms. Parnell is a 67-year-old female that presented with altered mental status. She had an outside h ead CT, which suggested a posterior fossa lesion concerning for tumor. She was transferred to [facility] where followup imaging was performed in both way with CT scan and an MRI scan which sug gest that this is in fact a cerebellar infarct. There is some suggestion of a minor degree of hemorr hagic transformation. The infarct was large enough that it started to cause some compromise of the f ourth ventricle with mild degree of ventriculomegaly. The patient was transferred to the stroke unit after this imaging was performed. The plan from a xin rosurgical perspective will be one of close observation. She is DNR and DNI. The family does not wi sh aggressive surgical measures per conversations they have had with the hospitalist service. Should she develop more profound ventriculomegaly, we can contemplate a ventriculostomy, may give her curre nt neurologic exam, I do not believe that is required.
[2018-02-17] MEDS: HumaLOG 300 UNITS/3 ML VIAL SC PRN ×4 (00:16→17:31)
[2018-02-17] MEDS: Piperacillin/Tazobactam 3.375 GM in Sodium Chloride 0.9% 100 ML IVPB SCH ×4 (02:28→20:40)
--- NOTE | 2018-02-17 02:30 | CON ---
DATE OF CONSULTATION: 02/16/2018 REFERRING PROVIDER: Talib Oneal M.D. REASON FOR CONSULTATION: Stroke. HISTORY OF PRESENT ILLNESS: Ms. Parnell is a pleasant 67-year-old -[place] female, who has been consulted for evaluation of stroke. History is limited, and thus, most of the history is obtain ed from the patient's dictated H and P note. Apparently, the patient had gone to outside hospital in [facility] for generalized weakness. She was treated initially with COPD and pulm onary hypertension with oxygen therapy and discharged home. However, over the next 24 hours, she con tinued to get worse in her strength and generalized weakness, which prompted family to bring her back to the emergency room, and then the patient was transferred here for higher level of care. PAST MEDICAL HISTORY, PAST SURGICAL HISTORY, FAMILY HISTORY, SOCIAL HISTORY, CURRENT MEDICATIONS, and ALLERGIES: Reviewed and they are as dictated in H and P note done by Dr. Talib Oneal. REVIEW OF SYSTEMS: As mentioned, which was negative. PHYSICAL EXAMINATION: VITAL SIGNS: Blood pressure of 117/57, pulse of 65, temperature of 98.4, respirations of 16, O2 sats 92% on room air. GENERAL: A well-developed, well-nourished -Fijian female, in no apparent distress. RESPIRATORY: Clear to auscultation bilaterally. CARDIOVASCULAR: Regular rate and rhythm. NEUROLOGICAL EXAM: Mental status: The patient is awake, alert, oriented x3. Speech and language: Fluent speech. Cranial nerves: Pupils are 3 mm and reactive. Visual last are intact. Extraocula r muscles are intact. No nystagmus noted. Face is symmetric. Tongue and uvula midline. Motor exam showed normal tone and bulk with a 5/5 strength in both upper and lower extremities. Babinski: Tran ntar responses flexion bilaterally. Coordination: There is mild dysmetria noted on opaxeb-yeeb-trcy er on both sides. LABORATORY DATA: Labs are reviewed, which included CBC, CMP, urinalysis, which is significant for so dium 146, otherwise unremarkable. IMAGING STUDIES: MRI brain with and without contrast was reviewed, which showed a large area of infa rction involving the left cerebellar region with mild ventriculomegaly and obstructive hydrocephalus. IMPRESSION: 1. Large cerebellar ischemic infarct with mass effect. 2. Generalized weakness, due to #1. ASSESSMENT AND PLAN: Ms. Parnell is a pleasant 67-year-old -Fijian female, who was present ed with the generalized weakness. She was found to have large cerebellar ischemic infarct. This moncada s cause a mass effect resulting in obstructive hydrocephalus. At this time, I would recommend contin uing PT, OT, speech therapy. I would recommend restarting her back on Decadron 4 mg q.6-8 hours, as she does have obstructive hydrocephalus, which can exacerbate over the next 24 hours. For this reaso n, I would recommend continuing Decadron to relieve pressure and reduce edema. Continue to follow re commendations of Neurosurgery. Thank you for consultation.
[2018-02-17] MEDS: Sodium Chloride 0.9% 1,000 ML IV SCH ×2 (06:23→11:24)
[2018-02-17] MEDS: metFORMIN 500 MG TAB PO SCH ×2 (08:12→16:20)
[2018-02-17] MEDS: Lisinopril 20 MG TAB PO SCH (08:18)
[2018-02-17] MEDS: Furosemide 80 MG TAB PO SCH (08:18)
[2018-02-17] MEDS: Carvedilol 25 MG TAB PO SCH ×2 (08:19→20:58)
[2018-02-17] MEDS: Atorvastatin Calcium 40 MG TAB PO SCH (08:19)
[2018-02-17] MEDS: Potassium Chloride 20 MEQ TAB PO SCH (08:19)
[2018-02-17] MEDS: Pantoprazole 40 MG VIAL IVP SCH (08:19)
--- NOTE | 2018-02-17 10:57 | PDOC.PN ---
- Subjective Encounter Start Date: 02/17/18 Encounter Start Time: 07:00 -: old records requested/rev Patient seen and examined for cerebellar cva No overnight events - Objective Resuscitation Status: Resuscitation Status DNR:Do Not Resuscitate MAR Reviewed: Yes Vital Signs & Weight: Vital Signs (12 hours) Temp Pulse Resp BP BP Pulse Ox 02/17/18 08:18 126/60 02/17/18 08:15 97.3 F L 71 14 94 L 02/17/18 07:37 97.3 F L 71 14 126/60 94 L 02/17/18 03:21 98 F 65 22 H 117/56 L 93 L 02/17/18 00:25 97.9 F 59 L 20 113/54 L 91 L Weight Admit Weight 218 lb 2.711 oz Weight 218 lb 2.711 oz I&O: 02/16/18 02/17/18 02/18/18 06:59 06:59 06:59 Intake Total 1756 871 897 Balance 1756 871 897 Result Diagrams: 02/14/18 04:18 02/14/18 04:18 Additional Labs: Accuchecks 02/17/18 02/17/18 02/16/18 10:24 05:25 21:36 POC Glucose 206 H 210 H 284 H 02/16/18 02/16/18 16:49 10:48 POC Glucose 236 H 267 H EKG Reviewed by me: Yes (nsr) Phys Exam - Physical Examination Constitutional: NAD HEENT: PERRLA, moist MMs, sclera anicteric Neck: no JVD, supple Respiratory: no wheezing, no rales, no rhonchi Cardiovascular: RRR, no significant murmur, no rub Gastrointestinal: soft, non-tender, no distention, positive bowel sounds Musculoskeletal: no edema, pulses present dysmetria+ Lymphatic: no nodes Psychiatric: normal affect Skin: no rash, normal turgor Dx/Plan (1) Cerebellar infarction Code(s): I63.9 - CEREBRAL INFARCTION, UNSPECIFIED Status: Acute (2) Encephalopathy acute Code(s): G93.40 - ENCEPHALOPATHY, UNSPECIFIED Status: Acute (3) Aspiration pneumonia Code(s): J69.0 - PNEUMONITIS DUE TO INHALATION OF FOOD AND VOMIT Status: Acute (4) Chronic respiratory failure with hypoxia, on home oxygen therapy Code(s): J96.11 - CHRONIC RESPIRATORY FAILURE WITH HYPOXIA; Z99.81 - DEPENDENCE ON SUPPLEMENTAL OXYGEN Status: Chronic (5) COPD (chronic obstructive pulmonary disease) Status: Chronic (6) CHF (NYHA class III, ACC/AHA stage C) Code(s): I50.9 - HEART FAILURE, UNSPECIFIED Status: Chronic (7) Diabetes type 2, controlled Code(s): E11.9 - TYPE 2 DIABETES MELLITUS WITHOUT COMPLICATIONS Status: Chronic (8) Obesity (BMI 30-39.9) Code(s): E66.9 - OBESITY, UNSPECIFIED Status: Chronic (9) Hypertensive urgency Code(s): I16.0 - HYPERTENSIVE URGENCY Status: Acute (10) UTI (urinary tract infection) Status: Suspected - Plan cont current plan of care, continue antibiotics, PT/OT, nephrology social worker * medication reviewed as below * symptomatic treatment * as per neurology, continue decadron for now * will monitor blood sugar and blood pressure, expected to be high due to steroid * will need placement, rehab vs snu * not on aspirin, OAC due to haemorrhage in infarction. Review of Systems - Review of Systems Eyes: negative: Pain, Vision Change, Conjunctivae Inflammation, Eyelid Inflammation, Redness, Other ENT: negative: Ear Pain, Ear Discharge, Nose Pain, Nose Discharge, Nose Congestion, Mouth Pain, Mouth Swelling, Throat Pain, Throat Swelling, Other Respiratory: negative: Cough, Dry, Shortness of Breath, Hemoptysis, SOB with Excertion, Pleuritic Pain, Sputum, Wheezing Cardiovascular: negative: chest pain, palpitations, orthopnea, paroxysmal nocturnal dyspnea, edema, light headedness, other Gastrointestinal: negative: Nausea, Vomiting, Abdominal Pain, Diarrhea, Constipation, Melena, Hematochezia, Other Genitourinary: negative: Dysuria, Frequency, Incontinence, Hematuria, Retention , Other Musculoskeletal: negative: Neck Pain, Shoulder Pain, Arm Pain, Back Pain, Hand Pain, Leg Pain, Foot Pain, Other - Medications/Allergies Allergies/Adverse Reactions: Allergies Allergy/AdvReac Type Severity Reaction Status Date / Time No Known Drug Allergies Allergy Verified 02/13/18 04:41 Medications: Current Medications Acetaminophen (Tylenol) 650 mg PO Q4H PRN PRN Reason: Headache/Fever or Pain Hydrocodone Bitart/Acetaminophen ([place] 5/325) 1 tab PO Q4H PRN PRN Reason: Moderate Pain (4-6) Al Hydroxide/Mg Hydroxide (Maalox) 30 ml PO Q6H PRN PRN Reason: Heartburn or Indigestion Artificial Tears (Tears Naturale) 0 drop EA EYE PRN PRN PRN Reason: Dry Eyes Atorvastatin Calcium (Lipitor) 80 mg PO DAILY [facility] Last Admin: 02/17/18 08:19 Dose: 80 mg Carvedilol (Coreg) 25 mg PO BID [facility] Last Admin: 02/17/18 08:19 Dose: 25 mg Clonidine (Yowkdmbp-Rju-2) 0.2 mg TD Q7DAYS [facility] Dextrose/Water (Dextrose 50%) 25 gm SLOW IVP PRN PRN PRN Reason: Hypoglycemia Furosemide (Lasix) 80 mg PO DAILY [facility] Last Admin: 02/17/18 08:18 Dose: 80 mg Glucagon (Glucagon) 1 mg IM PRN PRN PRN Reason: Hypoglycemia Guaifenesin (Robitussin Sf) 200 mg PO Q4H PRN PRN Reason: Cough Hydralazine HCl (Apresoline) 10 mg SLOW IVP Q4H PRN PRN Reason: Systolic BP > 180 Last Admin: 02/15/18 16:54 Dose: 10 mg Dextrose/Water (D5w) 1,000 mls @ 0 mls/hr IV .Q0M PRN; As Directed PRN Reason: Hypoglycemia Piperacillin Sod/Tazobactam (Sod 3.375 gm/ Sodium Chloride) 100 mls @ 200 mls/ hr IVPB 0200,0800,1400,2000 [facility] Last Admin: 02/17/18 08:09 Dose: 100 mls Sodium Chloride (Normal Saline 0.9%) 1,000 mls @ 50 mls/hr IV .Q20H [facility] Last Admin: 02/17/18 06:23 Dose: Not Given Insulin Human Lispro (Humalog) 0 units SC .MODERATE SLIDING SC PRN PRN Reason: Moderate Correctional Scale Last Admin: 02/17/18 06:27 Dose: 4 unit Insulin Human Lispro (Humalog) 0 units SC .BEDTIME SLIDING SC PRN PRN Reason: Bedtime Correctional Scale Last Admin: 02/17/18 00:16 Dose: 3 unit Labetalol HCl (Normodyne) 20 mg SLOW IVP Q4H PRN PRN Reason: Systolic BP > 180 Last Admin: 02/13/18 08:43 Dose: 20 mg Lisinopril (Zestril) 40 mg PO DAILY [facility] Last Admin: 02/17/18 08:18 Dose: 40 mg Loperamide HCl (Imodium) 2 mg PO PRN PRN PRN Reason: Diarrhea/Loose Stools Loratadine (Claritin) 10 mg PO DAILYPRN PRN PRN Reason: Sinus Symptoms Magnesium Hydroxide (Milk Of Magnesium) 30 ml PO DAILYPRN PRN PRN Reason: Constipation Metformin HCl (Glucophage) 500 mg PO BID-[facility] Last Admin: 02/17/18 08:12 Dose: 500 mg Mineral Oil/White Petrolatum (Eucerin Cream) 0 gm TOP BIDPRN PRN PRN Reason: Dry Skin Ondansetron HCl (Zofran Odt) 4 mg PO Q6H PRN PRN Reason: Nausea/Vomiting Ondansetron HCl (Zofran) 4 mg IVP Q6H PRN PRN Reason: Nausea/Vomiting Pantoprazole Sodium (Protonix) 40 mg PO DAILY [facility] Last Admin: 02/17/18 08:18 Dose: 40 mg Pantoprazole Sodium (Protonix) 40 mg IVP DAILY [facility] Last Admin: 02/17/18 08:19 Dose: Not Given Phenol (Chloraseptic [place] 180 Ml Bot) 0 ml PO PRN PRN PRN Reason: Sore Throat Potassium Chloride (K-Dur) 20 meq PO DAILY [facility] Last Admin: 02/17/18 08:19 Dose: 20 meq Senna (Senokot) 2 tab PO HSPRN PRN PRN Reason: Constipation Sodium Chloride ([place] Nasal [place] 0.65%) 0 ml EA NARE QIDPRN PRN PRN Reason: Nasal Congestion Sodium Chloride (Flush - Normal Saline) 10 ml IVF Q12HR [facility] Last Admin: 02/17/18 08:43 Dose: Not Given Sodium Chloride (Flush - Normal Saline) 10 ml IVF PRN PRN PRN Reason: Saline Flush Tramadol HCl (Ultram) 50 mg PO TID PRN PRN Reason: Pain Last Admin: 02/13/18 20:23 Dose: 50 mg
[2018-02-17] MEDS: Loperamide HCl 2 MG CAP PO PRN ×3 (14:13→20:41)
[2018-02-17] MEDS: Dexamethasone 4 mg/ml Vial SLOW IVP SCH (16:20)
[2018-02-18] MEDS: Dexamethasone 4 mg/ml Vial SLOW IVP SCH ×2 (00:12→11:26)
[2018-02-18] MEDS: Piperacillin/Tazobactam 3.375 GM in Sodium Chloride 0.9% 100 ML IVPB SCH ×2 (03:31→11:27)
[2018-02-18] MEDS: HumaLOG 300 UNITS/3 ML VIAL SC PRN ×2 (06:19→11:32)
[2018-02-18 07:58] VITALS: TEMP 97.7
[2018-02-18] MEDS: metFORMIN 500 MG TAB PO SCH (11:27)
[2018-02-18] MEDS: Potassium Chloride 20 MEQ TAB PO SCH (11:28)
[2018-02-18] MEDS: Atorvastatin Calcium 40 MG TAB PO SCH (11:28)
[2018-02-18] MEDS: Carvedilol 25 MG TAB PO SCH (11:30)
[2018-02-18] MEDS: Lisinopril 20 MG TAB PO SCH (11:30)
[2018-02-18] MEDS: Furosemide 80 MG TAB PO SCH (11:31)
[2018-02-18 11:38] VITALS: BP 157/67
--- NOTE | 2018-02-18 11:42 | PDOC.PN ---
- Subjective Encounter Start Date: 02/18/18 Encounter Start Time: 10:15 - Objective Resuscitation Status: Resuscitation Status DNR:Do Not Resuscitate MAR Reviewed: Yes Vital Signs & Weight: Vital Signs (12 hours) Temp Pulse Pulse Resp BP BP Pulse Ox 02/18/18 11:38 97.7 F 63 16 157/67 H 96 02/18/18 08:34 74 171/79 H 02/18/18 07:57 97.7 F 65 18 148/65 H 99 02/18/18 04:42 99.3 F 73 16 143/65 H 93 L 02/18/18 00:10 98.4 F 64 16 141/70 H 91 L Weight Admit Weight 218 lb 2.711 oz Weight 218 lb 2.711 oz I&O: 02/17/18 02/18/18 02/19/18 06:59 06:59 06:59 Intake Total 871 1785 Balance 871 1785 Result Diagrams: 02/14/18 04:18 02/14/18 04:18 Additional Labs: Accuchecks 02/18/18 02/18/18 02/17/18 11:05 06:04 20:32 POC Glucose 188 H 254 H 185 H 02/17/18 17:20 POC Glucose 177 H EKG Reviewed by me: Yes (nsr) Phys Exam - Physical Examination Constitutional: NAD HEENT: PERRLA, moist MMs, sclera anicteric Neck: no JVD, supple Respiratory: no wheezing, no rales, no rhonchi Cardiovascular: RRR, no significant murmur, no rub Gastrointestinal: soft, non-tender, no distention, positive bowel sounds Musculoskeletal: no edema, pulses present dysmetria+ Lymphatic: no nodes Psychiatric: normal affect, A&O x 3 Skin: no rash, normal turgor Dx/Plan (1) Cerebellar infarction Code(s): I63.9 - CEREBRAL INFARCTION, UNSPECIFIED Status: Acute (2) Encephalopathy acute Code(s): G93.40 - ENCEPHALOPATHY, UNSPECIFIED Status: Acute (3) Aspiration pneumonia Code(s): J69.0 - PNEUMONITIS DUE TO INHALATION OF FOOD AND VOMIT Status: Acute (4) Chronic respiratory failure with hypoxia, on home oxygen therapy Code(s): J96.11 - CHRONIC RESPIRATORY FAILURE WITH HYPOXIA; Z99.81 - DEPENDENCE ON SUPPLEMENTAL OXYGEN Status: Chronic (5) COPD (chronic obstructive pulmonary disease) Status: Chronic (6) CHF (NYHA class III, ACC/AHA stage C) Code(s): I50.9 - HEART FAILURE, UNSPECIFIED Status: Chronic (7) Diabetes type 2, controlled Code(s): E11.9 - TYPE 2 DIABETES MELLITUS WITHOUT COMPLICATIONS Status: Chronic (8) Obesity (BMI 30-39.9) Code(s): E66.9 - OBESITY, UNSPECIFIED Status: Chronic (9) Hypertensive urgency Code(s): I16.0 - HYPERTENSIVE URGENCY Status: Acute (10) UTI (urinary tract infection) Status: Suspected - Plan cont current plan of care, continue antibiotics, PT/OT, 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 Review of Systems - Review of Systems Eyes: negative: Pain, Vision Change, Conjunctivae Inflammation, Eyelid Inflammation, Redness, Other ENT: negative: Ear Pain, Ear Discharge, Nose Pain, Nose Discharge, Nose Congestion, Mouth Pain, Mouth Swelling, Throat Pain, Throat Swelling, Other Respiratory: negative: Cough, Dry, Shortness of Breath, Hemoptysis, SOB with Excertion, Pleuritic Pain, Sputum, Wheezing Cardiovascular: negative: chest pain, palpitations, orthopnea, paroxysmal nocturnal dyspnea, edema, light headedness, other Gastrointestinal: negative: Nausea, Vomiting, Abdominal Pain, Diarrhea, Constipation, Melena, Hematochezia, Other Genitourinary: negative: Dysuria, Frequency, Incontinence, Hematuria, Retention , Other Musculoskeletal: Foot Pain Neurological: Incoordination. negative: Weakness, Numbness, Change in Speech, Confusion, Seizures, Other - Medications/Allergies Allergies/Adverse Reactions: Allergies Allergy/AdvReac Type Severity Reaction Status Date / Time No Known Drug Allergies Allergy Verified 02/13/18 04:41 Medications: Current Medications Acetaminophen (Tylenol) 650 mg PO Q4H PRN PRN Reason: Headache/Fever or Pain Hydrocodone Bitart/Acetaminophen ([place] 5/325) 1 tab PO Q4H PRN PRN Reason: Moderate Pain (4-6) Al Hydroxide/Mg Hydroxide (Maalox) 30 ml PO Q6H PRN PRN Reason: Heartburn or Indigestion Artificial Tears (Tears Naturale) 0 drop EA EYE PRN PRN PRN Reason: Dry Eyes Atorvastatin Calcium (Lipitor) 80 mg PO DAILY [facility] Last Admin: 02/18/18 11:28 Dose: 80 mg Carvedilol (Coreg) 25 mg PO BID [facility] Last Admin: 02/18/18 11:30 Dose: 25 mg Clonidine (Nyocadmg-Ead-1) 0.2 mg TD Q7DAYS [facility] Dexamethasone (Decadron) 4 mg SLOW IVP 0800,1600,2359 [facility] Last Admin: 02/18/18 11:26 Dose: 4 mg Dextrose/Water (Dextrose 50%) 25 gm SLOW IVP PRN PRN PRN Reason: Hypoglycemia Furosemide (Lasix) 80 mg PO DAILY [facility] Last Admin: 02/18/18 11:31 Dose: 80 mg Glucagon (Glucagon) 1 mg IM PRN PRN PRN Reason: Hypoglycemia Guaifenesin (Robitussin Sf) 200 mg PO Q4H PRN PRN Reason: Cough Hydralazine HCl (Apresoline) 10 mg SLOW IVP Q4H PRN PRN Reason: Systolic BP > 180 Last Admin: 02/15/18 16:54 Dose: 10 mg Dextrose/Water (D5w) 1,000 mls @ 0 mls/hr IV .Q0M PRN; As Directed PRN Reason: Hypoglycemia Piperacillin Sod/Tazobactam (Sod 3.375 gm/ Sodium Chloride) 100 mls @ 200 mls/ hr IVPB 0200,0800,1400,2000 [facility] Last Admin: 02/18/18 11:27 Dose: 100 mls Sodium Chloride (Normal Saline 0.9%) 1,000 mls @ 50 mls/hr IV .Q20H [facility] Last Admin: 02/17/18 11:24 Dose: 1,000 mls Insulin Human Lispro (Humalog) 0 units SC .MODERATE SLIDING SC PRN PRN Reason: Moderate Correctional Scale Last Admin: 02/18/18 11:32 Dose: 2 unit Insulin Human Lispro (Humalog) 0 units SC .BEDTIME SLIDING SC PRN PRN Reason: Bedtime Correctional Scale Last Admin: 02/17/18 00:16 Dose: 3 unit Labetalol HCl (Normodyne) 20 mg SLOW IVP Q4H PRN PRN Reason: Systolic BP > 180 Last Admin: 02/13/18 08:43 Dose: 20 mg Lisinopril (Zestril) 40 mg PO DAILY [facility] Last Admin: 02/18/18 11:30 Dose: 40 mg Loperamide HCl (Imodium) 2 mg PO PRN PRN PRN Reason: Diarrhea/Loose Stools Last Admin: 02/17/18 20:41 Dose: 2 mg Loratadine (Claritin) 10 mg PO DAILYPRN PRN PRN Reason: Sinus Symptoms Magnesium Hydroxide (Milk Of Magnesium) 30 ml PO DAILYPRN PRN PRN Reason: Constipation Metformin HCl (Glucophage) 500 mg PO BID-[facility] Last Admin: 02/18/18 11:27 Dose: 500 mg Mineral Oil/White Petrolatum (Eucerin Cream) 0 gm TOP BIDPRN PRN PRN Reason: Dry Skin Ondansetron HCl (Zofran Odt) 4 mg PO Q6H PRN PRN Reason: Nausea/Vomiting Ondansetron HCl (Zofran) 4 mg IVP Q6H PRN PRN Reason: Nausea/Vomiting Pantoprazole Sodium (Protonix) 40 mg PO DAILY [facility] Last Admin: 02/18/18 11:28 Dose: 40 mg Pantoprazole Sodium (Protonix) 40 mg IVP DAILY [facility] Last Admin: 02/17/18 08:19 Dose: Not Given Phenol (Chloraseptic [place] 180 Ml Bot) 0 ml PO PRN PRN PRN Reason: Sore Throat Potassium Chloride (K-Dur) 20 meq PO DAILY [facility] Last Admin: 02/18/18 11:28 Dose: 20 meq Senna (Senokot) 2 tab PO HSPRN PRN PRN Reason: Constipation Sodium Chloride ([place] Nasal [place] 0.65%) 0 ml EA NARE QIDPRN PRN PRN Reason: Nasal Congestion Sodium Chloride (Flush - Normal Saline) 10 ml IVF Q12HR [facility] Last Admin: 02/18/18 11:31 Dose: 10 ml Sodium Chloride (Flush - Normal Saline) 10 ml IVF PRN PRN PRN Reason: Saline Flush Tramadol HCl (Ultram) 50 mg PO TID PRN PRN Reason: Pain Last Admin: 02/13/18 20:23 Dose: 50 mg
[2018-02-18] MEDS: Pantoprazole 40 MG VIAL IVP SCH (11:52)
--- NOTE | 2018-02-18 11:55 | DIS ---
DATE OF ADMISSION: 02/13/2018 DATE OF DISCHARGE: 02/18/2018 PRIMARY CARE PHYSICIAN: [facility] call admission. DISCHARGE DISPOSITION: [facility]. PRIMARY DISCHARGE DIAGNOSES: Acute cerebellar infarction with hemorrhagic conversion, acute encephal opathy due to problem #1, hypertensive urgency, aspiration pneumonia. SECONDARY DISCHARGE DIAGNOSES: Obesity with body mass index 35, diabetes type 2, chronic obstructive pulmonary disease, chronic respiratory failure with hypoxia, chronic diastolic congestive heart fail ure stage C, hypertension, dyslipidemia. PRIMARY PROCEDURE/OPERATION: None. RADIOLOGICAL INVESTIGATION: Chest x-ray was normal. MRI brain showed a cerebellar infarction and he morrhagic conversion. CT brain showed cerebellar infarction and hemorrhagic conversion. CT chest, a bdomen, and pelvis was unremarkable, but showed aspiration pneumonia. SIGNIFICANT LABORATORY DATA: WBC 10.7, hemoglobin 14.0, platelet 263. Sodium 146, potassium 3.8, BU N 31, creatinine 1.0, calcium 9.9. LFT normal. Urinalysis unremarkable. DISCHARGE MEDICATIONS: Lipitor 80 mg p.o. daily, Coreg 25 mg p.o. b.i.d., Lasix 80 mg p.o. daily, li sinopril 40 mg p.o. daily, metformin 500 mg p.o. b.i.d., Protonix 40 mg p.o. daily, potassium chlorid e 20 mEq p.o. daily, tramadol 50 mg p.o. t.i.d. p.r.n., Augmentin 875 mg twice daily, Decadron 4 mg p .o. b.i.d. for 7 days. CONTRAINDICATION: The patient is not on aspirin or any anticoagulant therapy because of hemorrhagic conversion of infarct. Aspirin and other medication can be started upon followup visit with the neur ologist and primary care physician. CODE STATUS: DNR. This was discussed during this admission. INPATIENT CONSULTANTS: Dr. Alanis Elizabeth was consulted while in hospital for cerebellar stroke. Dr. Aidan Ramos was following for hemorrhagic conversion and cerebellar stroke. TEST RESULTS PENDING ON DISCHARGE: None. ALLERGIES: No known drug allergy. DISCHARGE PLAN: Post hospital, the patient is discharged to [facility]. Subsequently, th e patient will follow up with primary care physician. The patient will need PT, OT, and speech thera py. HOSPITAL COURSE: A 67-year-old female who had acute onset of altered mental status and unsteadiness. She was initially taken to [facility]. 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 The patient was transferred to our hospital. We tried to do MRI the next day, but the patient was not able to lie down flat and ricardo t is why we were not able to do MRI. The patient remained encephalopathic and we started steroid the rapy and because of steroid, her blood pressure was high as well as the blood sugar was high. She farah d a repeat CT brain which showed cerebellar infarction with hemorrhagic conversion and MRI also confi rmed similar finding. We also did CT chest, abdomen, and pelvis to rule out any primary source of espinosa spected brain tumor, but it was unremarkable, but it did show aspiration pneumonia. The patient was initially getting Rocephin, but we changed to Zosyn, and on discharge, we changed to Augmentin. Medi cation was adjusted as per above. The patient was not on aspirin or any other kind of anticoagulant therapy while in hospital because of hemorrhagic conversion of infarct. Neurology and neurosurgeon s aw this patient. This patient was made DNR while in hospital. Initially, this patient was admitted to medical floor, but when we confirm the diagnosis of cerebellar infarct. We transferred her to [facility] floor and entire stroke team evaluated this patient. This patient had clinical improvement with steroid therapy. Neurology recommended to continue steroid therapy for now. The patient will contin ue above-mentioned medication at rehab place. We also added clonidine for better blood pressure cont rol. Now, the patient is able to take p.o. as well and that is why she will continue above-mentioned medication. The patient is seen and examined at bedside today. Please see my progress note from today for furthe r detail. Paper work for discharge done. Discharge medication reconciliation done. Total time spent on discharge day more than 30 minutes.
[2018-02-20] MEDS ORDERED: cloNIDine 0.2mg/24 Hour PATCH TD SCH (09:00)
[2018-02-20] MEDS ORDERED: cloNIDine 0.1mg/24 Hour PATCH TD SCH (09:00)
== END 2018-02-18 14:33 | DRG 64 ==
LOC: ERS 01:41 → T4-A 03:46 → OBSVTOIN 03:46 → 2SE 02-15 13:57
PROVIDERS: ADMIT Internal Medicine; ATTEND Internal Medicine
DX: I63.9 Cerebral infarction, unspecified (principal); G93.40 Encephalopathy, unspecified; J69.0 Pneumonitis due to inhalation of food and vomit; J96.11 Chronic respiratory failure with hypoxia; N39.0 Urinary tract infection, site not specified; I50.32 Chronic diastolic (congestive) heart failure; I13.0 Hypertensive heart and chronic kidney disease with heart failure and stage 1 through stage 4 chronic kidney disease, or unspecified chronic kidney disease; Z66 Do not resuscitate; Z99.81 Dependence on supplemental oxygen; J44.9 Chronic obstructive pulmonary disease, unspecified; E11.9 Type 2 diabetes mellitus without complications; E66.9 Obesity, unspecified; Z68.35 Body mass index [BMI] 35.0-35.9, adult; I16.0 Hypertensive urgency; E78.5 Hyperlipidemia, unspecified; I25.10 Atherosclerotic heart disease of native coronary artery without angina pectoris; K21.9 Gastro-esophageal reflux disease without esophagitis; E11.65 Type 2 diabetes mellitus with hyperglycemia; E11.22 Type 2 diabetes mellitus with diabetic chronic kidney disease; N18.3 Chronic kidney disease, stage 3 (moderate)
CPT/HCPCS: 36415; 36416; 51701; 70450; 70553; 71045; 71260; 74177; 80053; 80061; 81003; 85025; 93005; A4216; A4353; C9113; G8978-GP-CK; G8979-GP-CI; G8987-GO-CL; G8987-GO-CM; G8988-GO-CJ; G8996-GN-CK; G8996-GN-CL; G8997-GN-CJ; G8997-GN-CK; J0360; J0696; J1100; J2543; J7050